=== PATIENT | female | born 1960 | race Caucasian/White ===

== ENCOUNTER 2020-09-20 10:03 | Day surgery (SDC) | payer OTHER ==
[~2020-09-20] VITALS: Ht 162.6 cm; Wt 57.6 kg
[~2020-09-20 10:03] MED LIST: Calcium Ascorb500 MG PO; ESTRADIOL42.5 GM VAG; LEVSOD100; LEVSOD100 PO; MAGNESIUM OXID500 MG PO; MAGOXI400 PO; Restasis1 EACH BOTHEYES; TURMERIC500 M2 PO; VITAMIN D-32000 UNIT; VITAMIN D5000 UNIT PO; Vitamin B-Comp1 EACH PO
--- NOTE | 2020-09-20 11:31 | NUR ---
09/20/20 1130 Zelda Aparicio LATE ENTRY---PRINTER MALFUNCTIONED DURING PROCEDURE AND NO PHOTOS WERE RETRIEVED. DR MAX MARINELLI
--- NOTE | 2020-09-20 11:48 | NUR ---
09/20/20 1148 ARNULFO TAYLOR COLONOSCOPY SCREENING PHOTOGRAPHS NOT PRINTING IN EXAM ROOM SO NOT FURNISHED TO PT NOR IN PT CHART AT TIME OF DC.
== END 2020-09-20 11:48 | disposition home or self-care (01) ==
LOC: ORSCSDS 10:03
PROVIDERS: Internal Medicine Gastroenterology
PROC: 0DBK8ZX Excision of Ascending Colon, Via Natural or Artificial Opening Endoscopic, Diagnostic (ICD-10-PCS; principal; 2020-09-20 11:15)
DX: Z12.11 Encounter for screening for malignant neoplasm of colon (principal); D12.2 Benign neoplasm of ascending colon; K64.4 Residual hemorrhoidal skin tags; K64.8 Other hemorrhoids; Z86.010 Personal history of colon polyps; E03.9 Hypothyroidism, unspecified; Z79.899 Other long term (current) drug therapy
CPT/HCPCS: 88305; J2704; J7120